=== PATIENT | male | born 1965 | race Caucasian/White ===

== ENCOUNTER → 2018-03-05 10:15 | Outpatient (CLI) | payer BC, SELFPAY ==
[2018-03-05 11:29] LABS: Anion Gap 12.8 mmol/L (3-11); BUN 19 mg/dL (7-18); CO2 23.2 mmol/L (21.0-32.0); CREATININE 0.96 mg/dL (0.70-1.30); Calcium 8.6 mg/dL (8.5-10.1); Chloride 106 mmol/L (98-107); Glucose 115 mg/dL (70-100); Potassium 4.1 mmol/L (3.5-5.1); Sodium 142 mmol/L (136-145)
[2018-03-05 11:40] LABS: Cholesterol 109 mg/dL (50-200); HDL Cholesterol 38 mg/dL (40-60); LDL CHOLESTEROL 62 mg/dL (<100); Triglyceride 72 mg/dL (30-150)
== END ==
PROVIDERS: PCP Internal Medicine; Visit Provider Internal Medicine
DX: E78.00 Pure hypercholesterolemia, unspecified (principal); I10 Essential (primary) hypertension
CPT/HCPCS: 80048; 80061; 83721

== ENCOUNTER 2019-04-20 08:20 | Outpatient (CLI) | payer BC, SELFPAY ==
[2019-04-20 09:44] LABS: Anion Gap 10.9 mmol/L (3-11); BUN 15 mg/dL (7-18); CO2 27.1 mmol/L (21.0-32.0); CREATININE 0.93 mg/dL (0.70-1.30); Calcium 8.9 mg/dL (8.5-10.1); Calculated LDL 137 mg/dL; Chloride 104 mmol/L (98-107); Cholesterol 216 mg/dL (50-200); Glucose 148 mg/dL (70-100); HDL Cholesterol 35 mg/dL (40-60); Potassium 4.5 mmol/L (3.5-5.1); Sodium 142 mmol/L (136-145); Triglyceride 220 mg/dL (30-150)
== END 2019-04-20 08:40 ==
PROVIDERS: PCP Internal Medicine; Visit Provider Internal Medicine
DX: I10 Essential (primary) hypertension (principal)
CPT/HCPCS: 36415; 80048; 80061

== ENCOUNTER 2019-09-05 03:47 | Outpatient (CLI) | payer BC, SELFPAY ==
--- NOTE | 2019-09-05 10:39 | DIABASSESS_ITS ---
DESCRIPTION/ASSESSMENT: Feroz Drew presents for medical nutrition therapy for diabetes. A1c increase 6.9 to 8.6 Food - Feroz has coffee with cream for breakfast; leftovers, or [employer] hot line, occasional salad bar, pizza, subway. Last evening he had mac and cheese, bread, broccoli. He believes his portions may be too big. He has quit juice but admits he loves all kinds of sweets. He is now drinking water during the day. Physical Activity - Sits in a chair at work 12 hours a day, 6 days a week. 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 Medication - [id number] Monitoring - he does not monitor but does know how to do this. Risks/Related health history - hypercholesterolemia Coping - denies symptoms of depression INTERVENTION: DSME is provided in the following AADE 7 areas based on patients interest and assessment of needs: Food Guidelines - reviewed diabetes food guide focused on sources of carbohydrate, portions, distribution. Discussed vegetables as the heart healthy change as well as preventing overconsumption of carbohydrates. He is determined to reverse this A1c trend. Physical Activity - discussed benefits for glycemic control as well as cardiovascular. Suggested 10 minute walks mid-day at work as a break. Medication - discussed new medications helpful to blood sugar as well as cardiovascular risk factors. Explained administration, benefits, side effects. Encouraged him to call PCP if blood sugars do not improve in next few weeks. Monitoring - discussed monitoring for meaning; reviewed how to use glucometer although he states he is familiar with this. Random blood sugar done this morning prior to eating food: 332mg/dl. Suggested One Touch Verio for Mr. Drew based on [employer] health insurance. He knows to try [employer] brands if the One Touch is cost prohibitive after insurance. ACTION PLAN: Monitor blood sugars by meal considering food consumed Decrease supper portions; increase vegetables to 1 cup at lunch and supper. Attempt 10 minute movement breaks once a day. Individual MNT _3___ units billed TIME 55 minutes face to face; No DM group education series being offered at this time.
== END 2019-09-05 04:07 ==
PROVIDERS: PCP Internal Medicine; Visit Provider Dietitian, Registered
DX: E11.9 Type 2 diabetes mellitus without complications (principal); Z79.84 Long term (current) use of oral hypoglycemic drugs; Z71.3 Dietary counseling and surveillance
CPT/HCPCS: 97802

== ENCOUNTER 2019-09-06 07:58 | Outpatient (CLI) | payer BC, SELFPAY ==
[2019-09-06 09:27] LABS: Calculated LDL 139 mg/dL (<100); Cholesterol 217 mg/dL (<200); Glucose 217 mg/dL (74-106); HDL Cholesterol 30 mg/dL (40-60); Triglyceride 241 mg/dL (<150)
== END 2019-09-06 08:18 ==
PROVIDERS: PCP Internal Medicine; Visit Provider Internal Medicine
DX: E78.00 Pure hypercholesterolemia, unspecified (principal); R63.5 Abnormal weight gain; R73.03 Prediabetes
CPT/HCPCS: 36415; 80061; 82947; 84443

== ENCOUNTER 2021-12-09 04:21 | Outpatient (CLI) | payer BC, SELFPAY ==
[2021-12-09 10:38] LABS: Anion Gap 9.7 mmol/L (3-11); BUN 17 mg/dL (7-18); CO2 27.3 mmol/L (21.0-32.0); CREATININE 0.9 mg/dL (0.70-1.30); Calcium 9.1 mg/dL (8.5-10.1); Calculated LDL 139 mg/dL (<100); Chloride 104 mmol/L (98-107); Cholesterol 209 mg/dL (<200); Glucose 240 mg/dL (74-106); HDL Cholesterol 38 mg/dL (40-60); Potassium 4.5 mmol/L (3.5-5.1); Sodium 141 mmol/L (136-145); Triglyceride 164 mg/dL (<150)
[2021-12-09 14:21] LABS: Microalb ug/mg Crea 12.5 ug/mg Cr
== END 2021-12-09 04:22 | disposition home or self-care (01) ==
LOC: LBO 04:21
PROVIDERS: PCP Internal Medicine; Visit Provider Internal Medicine
DX: E78.00 Pure hypercholesterolemia, unspecified (principal); I10 Essential (primary) hypertension; E11.9 Type 2 diabetes mellitus without complications
CPT/HCPCS: 36415; 80048; 80061; 82043; 82570

== ENCOUNTER 2022-11-24 02:12 | Outpatient (CLI) | payer BC, SELFPAY ==
[2022-11-24 09:09] LABS: Hemoglobin A1C 9.7 % (<5.7)
[2022-11-24 09:23] LABS: Anion Gap 7.7 mmol/L (3-11); BUN 15 mg/dL (7-18); CO2 28.3 mmol/L (21.0-32.0); Calcium 8.9 mg/dL (8.5-10.1); Calculated LDL 52 mg/dL (<100); Chloride 103 mmol/L (98-107); Cholesterol 115 mg/dL (<200); Estimated GFR 87.24 (mL/min/1.73m2); Glucose 249 mg/dL (74-106); HDL Cholesterol 39 mg/dL (40-60); Potassium 4.5 mmol/L (3.5-5.1); Sodium 139 mmol/L (136-145); Triglyceride 124 mg/dL (<150)
[2022-11-24 15:28] LABS: COMMENT (LAB VIEW ONLY) 182.78 mg/dL; Microalb ug/mg Crea 10.9 ug/mg Cr
== END 2022-11-24 02:13 | disposition home or self-care (01) ==
LOC: LBO 02:12
PROVIDERS: PCP Nurse Practitioner Adult Health; Visit Provider Nurse Practitioner Adult Health
DX: I10 Essential (primary) hypertension (principal); E11.9 Type 2 diabetes mellitus without complications; E78.00 Pure hypercholesterolemia, unspecified; E78.1 Pure hyperglyceridemia
CPT/HCPCS: 36415; 80048; 80061; 82043; 82570; 83036

== ENCOUNTER 2023-10-10 09:43 | Outpatient (REF) | payer BC, SELFPAY ==
[2023-10-10 15:28] LABS: Source Nasal/Nares
[2023-10-10 16:23] LABS: COVID-19 PCR Negative (Negative)
== END 2023-10-10 09:44 | disposition home or self-care (01) ==
LOC: LBN 09:43
PROVIDERS: PCP Nurse Practitioner Adult Health; Visit Provider Nurse Practitioner Adult Health
DX: R09.81 Nasal congestion (principal); Z11.52 Encounter for screening for COVID-19
CPT/HCPCS: 87635

== ENCOUNTER 2023-10-27 05:24 | Outpatient (CLI) | payer BC, SELFPAY ==
[2023-10-27 08:23] LABS: Abs Immature Grans 0.02 10^3/uL (0.0-0.06); Absolute Basophil Count 0.09 10^3/uL (0.0-0.2); Absolute Eosinophil Count 0.34 10^3/uL (0.0-0.7); Absolute Neutrophil Count 4.26 10^3/uL (1.2-6.7); Basophils % 1.1; Eosinophils % 4.2; HCT 48.1 % (40.0-50.0); HGB 16.3 g/dL (13.5-17.5); Immature Grans % 0.2; Lymphocytes % 33.7; MCH 29.4 pg (27.0-33.0); MCHC 33.9 % (32.0-36.0); MCV 87 fL (80-95); MPV 8.6 fL (8.0-11.0); Monocytes % 7.5; Neutrophils % 53.3; Platelet Count 296 10^3/uL (130-400); RBC 5.55 10^6/uL (4.36-5.78); RDW 12.3 % (11.8-14.1); RDW-SD 39.3 fL; WBC 8.01 10^3/uL (4.4-10.8)
[2023-10-27 09:11] LABS: ALT 50 U/L (16-63); AST 17 U/L (15-37); Albumin 3.8 g/dL (3.4-5.0); Alkaline Phosphatase 64 U/L (46-116); Anion Gap 9.4 mmol/L (3-11); BUN 16 mg/dL (7-18); Bilirubin, Total 0.5 mg/dL (0.2-1.0); CO2 29.6 mmol/L (21.0-32.0); Calcium 8.9 mg/dL (8.5-10.1); Calculated LDL 57 mg/dL (<100); Chloride 101 mmol/L (98-107); Cholesterol 119 mg/dL (<200); Glucose 265 mg/dL (74-106); HDL Cholesterol 43 mg/dL (40-60); Potassium 4.3 mmol/L (3.5-5.1); Sodium 140 mmol/L (136-145); Total Protein 7.4 g/dL (6.4-8.2); Triglyceride 97 mg/dL (<150)
[2023-10-27 12:11] LABS: COMMENT (LAB VIEW ONLY) 227.32 mg/dL; Microalb ug/mg Crea 13.4 ug/mg Cr
[2023-10-27 18:23] LABS: PSA, Screening 1.8 ng/mL (<=3.5)
== END 2023-10-27 05:25 | disposition home or self-care (01) ==
LOC: LBO 05:24
PROVIDERS: PCP Nurse Practitioner Adult Health; Visit Provider Nurse Practitioner Adult Health
DX: Z80.6 Family history of leukemia (principal); E11.9 Type 2 diabetes mellitus without complications; I10 Essential (primary) hypertension; E78.1 Pure hyperglyceridemia
CPT/HCPCS: 36415; 80053; 80061; 84153; 82043; 82570; 85025

== ENCOUNTER 2024-03-26 11:38 | Outpatient (CLI) | payer BC, SELFPAY ==
--- NOTE | 2024-03-26 09:45 | DI.RAD_ITS ---
Exam(s) XR KNEE LT 4V AP,LAT,RENU,PAT EXAM: XR KNEE LT 4V AP,LAT,RENU,PAT CLINICAL HISTORY: LEFT KNEE PAIN. TECHNIQUE: 2D digital imaging was performed. Three views. COMPARISON: No exams were available for comparison FINDINGS: BONES: No acute fracture is present. No bony destructive lesion is seen. Prominent tibial tubercle . JOINTS: The knee is normally aligned. No joint effusion is seen. Joint spaces are maintained. Mini mal periarticular spurring. SOFT TISSUE: Vascular calcifications. IMPRESSION: Minimal degenerative changes. DATA REPOSITORY: RADIATION DOSE DELIVERED:
== END 2024-03-26 11:39 | disposition home or self-care (01) ==
LOC: DIORS 11:39
PROVIDERS: PCP Nurse Practitioner Adult Health; Visit Provider Student in an Organized Health Care Education/Training Program
DX: M25.562 Pain in left knee (principal)
CPT/HCPCS: 73564

== ENCOUNTER 2024-10-08 02:40 | Outpatient (CLI) | payer BC, SELFPAY ==
[2024-10-08 07:42] LABS: MCH 29.3 pg (27.0-33.0); MCHC 33.3 % (32.0-36.0); MCV 88 fL (80-95); MPV 8.3 fL (8.0-11.0); Platelet Count 255 10^3/uL (130-400); RBC 5.47 10^6/uL (4.36-5.78); RDW 12.7 % (11.8-14.1); RDW-SD 41.3 fL
[2024-10-08 07:53] LABS: Hemoglobin A1C 6.4 % (<5.7)
[2024-10-08 09:02] LABS: COMMENT (LAB VIEW ONLY) 81.44 mg/dL; Microalb ug/mg Crea 18.1 ug/mg Cr
[2024-10-08 09:02] LABS: ALT 32 U/L (16-63); AST 18 U/L (15-37); Albumin 4.3 g/dL (3.4-5.0); Alkaline Phosphatase 64 U/L (46-116); Anion Gap 9.2 mmol/L (3-11); BUN 17 mg/dL (7-18); Bilirubin, Total 1.1 mg/dL (0.2-1.0); CO2 28.8 mmol/L (21.0-32.0); CREATININE 0.8 mg/dL (0.70-1.30); Calcium 9.3 mg/dL (8.5-10.1); Calculated LDL 41 mg/dL (<100); Chloride 103 mmol/L (98-107); Cholesterol 108 mg/dL (<200); Estimated GFR 101.95 (mL/min/1.73m2); Glucose 125 mg/dL (74-106); HDL Cholesterol 51 mg/dL (>or=40); Sodium 141 mmol/L (136-145); Total Protein 7.7 g/dL (6.4-8.2); Triglyceride 82 mg/dL (<150)
== END 2024-10-08 02:41 | disposition home or self-care (01) ==
LOC: LBO 02:40
PROVIDERS: PCP Nurse Practitioner Adult Health; Referring Provider Nurse Practitioner Adult Health; Visit Provider Nurse Practitioner Adult Health
DX: I10 Essential (primary) hypertension (principal); E78.00 Pure hypercholesterolemia, unspecified; E11.9 Type 2 diabetes mellitus without complications; E66.9 Obesity, unspecified
CPT/HCPCS: 36415; 80053; 80061; 85027; 82043; 82570; 83036